=== PATIENT | female | born 1970 | race Caucasian/White ===

== ENCOUNTER 2020-08-06 16:06 | Observation (INO) | payer OTHER ==
[2020-08-06 16:49] LABS: Basophils # (A) 0.1 k/uL (0-0.2); Basophils % (A) 1 %; Eosinophils # (A) 0.7 k/uL (0-0.7); Eosinophils % (A) 5 %; HCT 40.8 % (34.0-46.0); HGB 13.7 gm/dL (11.4-16.0); Lymphocytes # (A) 3.1 k/uL (1.0-4.8); Lymphocytes % (A) 23 %; MCH 30.1 pg (25.0-35.0); MCHC 33.4 g/dL (31.0-37.0); MCV 89.9 fL (80.0-100.0); Mean Platelet Volume 7.2; Monocytes # (A) 0.8 k/uL (0-1.0); Monocytes % (A) 6 %; Neutrophils # (A) 8.9 k/uL (1.3-7.7); Neutrophils % (A) 65 %; Platelet Count 491 k/uL (150-450); RBC 4.54 m/uL (3.80-5.40); RDW 13.6 % (11.5-15.5); WBC 13.8 k/uL (3.8-10.6)
[2020-08-06 16:57] LABS: INR 0.9 (<1.2); Partial Thromboplastin Time 26.2 sec (22.0-30.0); Prothrombin Time 9.5 sec (9.0-12.0)
[2020-08-06 17:00] LABS: ALT 17 U/L (4-34); AST 21 U/L (14-36); African American GFR (CKD) >90 (>60 ml/min/1.73 sqM); Albumin 3.9 g/dL (3.5-5.0); Alkaline Phosphatase 74 U/L (38-126); Anion Gap 6 mmol/L; Blood Urea Nitrogen 9 mg/dL (7-17); Calcium 9.1 mg/dL (8.4-10.2); Carbon Dioxide 25 mmol/L (22-30); Chloride 107 mmol/L (98-107); Glucose 91 mg/dL (74-99); Magnesium 1.9 mg/dL (1.6-2.3); Non-African American GFR(CKD) >90 (>60 ml/min/1.73 sqM); Potassium 4.6 mmol/L (3.5-5.1); Sodium 138 mmol/L (137-145); Total Bilirubin 0.4 mg/dL (0.2-1.3); Total Protein 7.1 g/dL (6.3-8.2)
--- NOTE | 2020-08-06 17:17 | XR ---
EXAMINATION TYPE: XR chest 2V DATE OF EXAM: 08/06/2020 COMPARISON: NONE HISTORY: Chest pain. TECHNIQUE: Frontal and lateral views of the chest are obtained. FINDINGS: There is no focal air space opacity, pleural effusion, or pneumothorax seen. The cardiac silhouette size is within normal limits. The osseous structures are otherwise intact. Single suture anchor overlying the right humeral head seen. IMPRESSION: No acute cardiopulmonary process.
--- NOTE | 2020-08-06 18:10 | ED ---
Chest Pain HPI - General Chief Complaint: Chest Pain Stated Complaint: Chest Pain Time Seen by Provider: 08/06/20 16:10 Source: patient Mode of arrival: ambulatory Limitations: no limitations - History of Present Illness Initial Comments: Pt is a 49-year-old female presents to the emergency room for chest pain. Patient states that she had sudden onset of chest pain which radiated to her left jaw and into her back which started around 3 PM this evening. Reports that it was a pressure sensation that was not reproducible with movement. She denies previous history of cardiac disease. She had no associated nausea or vomiting. Sensation was so severe that it made her feel presyncopal and diaphoretic. No numbness, tingling or weakness in her extremities. She denies recent fevers, chills or cough. No lower externally swelling. No history of DVT or PE. Patient does have some family history of cardiac disease. She presents emergency room and reports that the chest pain is gone at this time. She has never had any type of cardiac evaluation to include echo or stress test. No other alleviating, precipitating or modifying factors - Related Data Home Medications Medication Instructions Recorded Confirmed Albuterol Sulfate [Proair Hfa] 1 puff INHALATION RT-Q4H PRN 08/06/20 08/06/20 Clobetasol Propionate [Temovate 1 applic TOPICAL BID PRN 08/06/20 08/06/20 0.05% Cream] Ergocalciferol [Vitamin D2 50,000 unit PO TU 08/06/20 08/06/20 (DRISDOL)] Omeprazole 20 mg PO AC-BRKFST 08/06/20 08/06/20 Sertraline HCl [Zoloft] 25 mg PO HS 08/06/20 08/06/20 hydrOXYzine HCL [Atarax] 25 mg PO DAILY PRN 08/06/20 08/06/20 Allergies Allergy/AdvReac Type Severity Reaction Status Date / Time fentanyl Allergy Rash/Hives Verified 08/06/20 18:38 shellfish derived [Shrimp] Allergy Rash/Hives Verified 08/06/20 18:38 Review of Systems ROS Statement: Those systems with pertinent positive or pertinent negative responses have been documented in the HPI. ROS Other: All systems not noted in ROS Statement are negative. EKG Findings - EKG Comments: EKG Findings:: EKG demonstrates normal sinus rhythm with a ventricular rate of 74. ND interval 142. QRS 72. QTC of 441. No acute ST segment elevations or depressions Past Medical History Past Medical History: No Reported History History of Any Multi-Drug Resistant Organisms: None Reported Past Surgical History: Section, Orthopedic Surgery, Tonsillectomy, Uterine Ablation Past Psychological History: No Psychological Hx Reported Smoking Status: Never smoker Past Alcohol Use History: Occasional Past Drug Use History: None Reported General Exam Limitations: no limitations General appearance: alert, in no apparent distress Head exam: Present: atraumatic, normocephalic, normal inspection Eye exam: Present: normal appearance, PERRL, EOMI. Absent: scleral icterus, conjunctival injection, periorbital swelling ENT exam: Present: normal exam, mucous membranes moist Neck exam: Present: normal inspection. Absent: tenderness, meningismus, lymphadenopathy Respiratory exam: Present: normal lung sounds bilaterally. Absent: respiratory distress, wheezes, rales, rhonchi, stridor Cardiovascular Exam: Present: regular rate, normal rhythm, normal heart sounds. Absent: systolic murmur, diastolic murmur, rubs, gallop, clicks GI/Abdominal exam: Present: soft, normal bowel sounds. Absent: distended, tenderness, guarding, rebound, rigid Extremities exam: Present: normal inspection, full ROM, normal capillary refill. Absent: tenderness, pedal edema, joint swelling, calf tenderness Back exam: Present: normal inspection Neurological exam: Present: alert, oriented X3, CN II-XII intact Psychiatric exam: Present: normal affect, normal mood Skin exam: Present: warm, dry, intact, normal color. Absent: rash Course Vital Signs 08/06/20 08/06/20 08/06/20 16:10 17:00 18:54 Temperature 98.1 F 98.4 F Pulse Rate 84 86 89 Pulse Rate [ 83 Pulse Oximetery ] Respiratory 16 18 16 Rate Blood Pressure 127/81 131/75 119/70 Blood Pressure 113/73 [Right Arm] O2 Sat by Pulse 96 99 93 L Oximetry Chest Pain MDM - MDM On arrival patient is placed in room 16. A thorough history and physical exam was performed. Patient placed on continuous pulse ox and cardiac monitoring. 12-lead EKG is performed laboratory studies were conducted the patient went for chest x-ray. Laboratory studies are reviewed. Does demonstrate that the patient has a negative troponin level. Chest x-ray demonstrates no acute intrathoracic process. Results are discussed with the patient. I discussed diagnosis, differential and treatment options. Due to the severity of the incident the patient was given an aspirin. Called and spoke with Dr. Hussein who agreed to admit the patient. Patient did agree to this treatment plan. She remained in stable condition, pain-free and was transported to the floor Disposition Clinical Impression: Chest pain Disposition: ADMITTED IP TO THIS HOSP Condition: Stable Is patient prescribed a controlled substance at d/c from ED?: No Decision to Admit Reason: Admit from EC Decision Date: 08/06/20 Decision Time: 18:43
[2020-08-06] MEDS ORDERED: NALOXONE 0.4 MG/ML 1 ML VIAL IV PRN (18:43)
[2020-08-06] MEDS ORDERED: ASPIRIN 325 MG TAB PO STA (18:46)
[2020-08-06] MEDS ORDERED: SERTRALINE 25 MG TAB PO SCH (21:00)
[2020-08-07] MEDS ORDERED: PANTOPRAZOLE 40 MG TABLET PO SCH (07:30)
[2020-08-07 07:58] LABS: Basophils # (A) 0.2 k/uL (0-0.2); Basophils % (A) 1 %; Eosinophils # (A) 0.6 k/uL (0-0.7); Eosinophils % (A) 4 %; HCT 41.3 % (34.0-46.0); HGB 13.3 gm/dL (11.4-16.0); Lymphocytes % (A) 27 %; MCH 29.5 pg (25.0-35.0); MCHC 32.3 g/dL (31.0-37.0); MCV 91.4 fL (80.0-100.0); Mean Platelet Volume 7.2; Monocytes # (A) 0.9 k/uL (0-1.0); Monocytes % (A) 6 %; Neutrophils # (A) 9.1 k/uL (1.3-7.7); Neutrophils % (A) 61 %; Platelet Count 470 k/uL (150-450); RBC 4.52 m/uL (3.80-5.40); RDW 13.7 % (11.5-15.5); WBC 14.9 k/uL (3.8-10.6)
[2020-08-07 08:12] VITALS: RESP 18
[2020-08-07 08:14] LABS: African American GFR (CKD) >90 (>60 ml/min/1.73 sqM); Anion Gap 6 mmol/L; Blood Urea Nitrogen 11 mg/dL (7-17); Carbon Dioxide 26 mmol/L (22-30); Chloride 106 mmol/L (98-107); Glucose 90 mg/dL (74-99); Non-African American GFR(CKD) 85 (>60 ml/min/1.73 sqM); Potassium 4.1 mmol/L (3.5-5.1); Sodium 138 mmol/L (137-145)
--- NOTE | 2020-08-07 10:07 | P.CRDCN ---
History of Present Illness History of present illness: HISTORY OF PRESENTING ILLNESS This is a pleasant 49-year-old occasion female past medical history significant for asthma and depression. 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 We have been asked to see in consultation for chest pain. She states yesterday she had a couple coffee and was sitting down. She was getting up to do something when she had an acute onset of excruciating pain in the midsternal region that radiated through to the mid upper back. It was associated with inability to take a deep breath, diaphoresis and feeling lightheaded. The episode lasted approximately 2 minutes and subsided on its own. This morning she feels a vague ache in the chest and mid upper back. The pain is not reproducible on palpation or with deep breathing. DIAGNOSTICS EKG reveals sinus mechanism with no acute ST or T wave abnormalities noted. Telemetry tracings indicate sinus mechanism with no acute arrhythmias noted. Chest xray negative for an acute cardiopulmonary process. Laboratory reviewed, WBC 14.9, hemoglobin 13.3, platelets 470, sodium 138, potassium 4.1, creatinine 0.83, magnesium 1.9, cardiac enzymes negative 3. She takes no daily cardiac medications. REVIEW OF SYSTEMS At the time of my exam: CONSTITUTIONAL: Denies fever or chills. CARDIOVASCULAR: Complains of chest pain. Denies shortness of breath, orthopnea, PND or palpitations. RESPIRATORY: Denies cough. GASTROINTESTINAL: Denies abdominal pain, diarrhea, constipation, nausea or vomiting. MUSCULOSKELETAL: Denies myalgias. NEUROLOGIC: Denies numbness, tingling, headacbe or weakness. ENDOCRINE: Denies fatigue, weight change, polydipsia or polyurina. GENITOURINARY: Denies burning, hematuria or urgency with micturation. HEMATOLOGIC: Denies history of anemia or bleeding. PHYSICAL EXAMINATION Blood pressure 113/73 heart rate 83 afebrile and maintaining oxygen saturation on nasal cannula. CONSTITUTIONAL: No apparent distress. Obese. HEENT: Head is normocephalic. Pupils are equal, round. Sclerae anicteric. Mucous membranes of the mouth are moist. No JVD. No carotid bruit. CHEST EXAMINATION: Lungs are clear to auscultation. No chest wall tenderness is noted on palpation or with deep breathing. HEART EXAMINATION: Regular rate and rhythm. S1, S2 heard. No murmurs, gallops or rub. ABDOMEN: Soft, nontender. Positive bowel sounds. EXTREMITIES: 2+ peripheral pulses, no lower extremity edema and no calf tenderness. NEUROLOGIC EXAMINATION: Patient is awake, alert and oriented x3. ASSESSMENT Chest pain Obesity, BMI 39 PLAN An acute coronary event has been ruled out. Obtain stress echocardiogram to assess for stress-induced cardiac ischemia. If stress test is normal she may be discharged from a cardiac perspective. Thank you kindly for this consultation. Nurse Practitioner note has been reviewed, I agree with a documented findings and plan of care. Patient was seen and examined. Past Medical History Past Medical History: No Reported History History of Any Multi-Drug Resistant Organisms: None Reported Past Surgical History: Section, Orthopedic Surgery, Tonsillectomy, Uterine Ablation Past Anesthesia/Blood Transfusion Reactions: No Reported Reaction Past Psychological History: No Psychological Hx Reported Smoking Status: Never smoker Past Alcohol Use History: Occasional Past Drug Use History: None Reported Medications and Allergies Home Medications Medication Instructions Recorded Confirmed Type Albuterol Sulfate [Proair Hfa] 1 puff INHALATION RT-Q4H PRN 08/06/20 08/06/20 History Clobetasol Propionate [Temovate 1 applic TOPICAL BID PRN 08/06/20 08/06/20 History 0.05% Cream] Ergocalciferol [Vitamin D2] 50,000 unit PO TU 08/06/20 08/06/20 History Omeprazole 20 mg PO AC-BRKFST 08/06/20 08/06/20 History Sertraline HCl [Zoloft] 25 mg PO HS 08/06/20 08/06/20 History hydrOXYzine HCL [Atarax] 25 mg PO DAILY PRN 08/06/20 08/06/20 History Allergies Allergy/AdvReac Type Severity Reaction Status Date / Time fentanyl Allergy Rash/Hives Verified 08/06/20 18:38 shellfish derived [Shrimp] Allergy Rash/Hives Verified 08/06/20 18:38 Physical Exam Vitals: Vital Signs Temp Pulse Pulse Resp BP BP Pulse Ox 08/07/20 08:09 98.1 F 68 18 127/88 97 08/07/20 03:00 98.4 F 83 22 113/73 96 08/06/20 21:00 97.5 F L 82 22 130/75 96 08/06/20 18:54 98.4 F 89 83 16 119/70 113/73 93 L 08/06/20 17:00 86 18 131/75 99 08/06/20 16:10 98.1 F 84 16 127/81 96 Intake and Output 08/06/20 08/07/20 08/07/20 22:59 06:59 14:59 Other: Weight 108.862 kg Results 08/07/20 07:37 08/07/20 07:37 Cardiac Enzymes 08/06/20 08/06/20 08/06/20 Range/Units 16:42 16:42 18:31 AST 21 (14-36) U/L Troponin I <0.012 <0.012 (0.000-0.034) ng/mL 08/06/20 Range/Units 21:18 AST (14-36) U/L Troponin I <0.012 (0.000-0.034) ng/mL Coagulation 08/06/20 Range/Units 16:42 PT 9.5 (9.0-12.0) sec APTT 26.2 (22.0-30.0) sec CBC 08/06/20 08/07/20 Range/Units 16:42 07:37 WBC 13.8 H 14.9 H (3.8-10.6) k/uL RBC 4.54 4.52 (3.80-5.40) m/uL Hgb 13.7 13.3 (11.4-16.0) gm/dL Hct 40.8 41.3 (34.0-46.0) % Plt Count 491 H 470 H (150-450) k/uL Comprehensive Metabolic Panel 08/06/20 08/07/20 Range/Units 16:42 07:37 Sodium 138 138 (137-145) mmol/L Potassium 4.6 4.1 (3.5-5.1) mmol/L Chloride 107 106 (98-107) mmol/L Carbon Dioxide 25 26 (22-30) mmol/L BUN 9 11 (7-17) mg/dL Creatinine 0.78 0.83 (0.52-1.04) mg/dL Glucose 91 90 (74-99) mg/dL Calcium 9.1 9.0 (8.4-10.2) mg/dL AST 21 (14-36) U/L ALT 17 (4-34) U/L Alkaline Phosphatase 74 (38-126) U/L Total Protein 7.1 (6.3-8.2) g/dL Albumin 3.9 (3.5-5.0) g/dL Current Medications Generic Name Dose Route Start Last Admin Trade Name Freq PRN Reason Stop Dose Admin Ergocalciferol 50,000 unit 08/08/20 09:00 Ergocalciferol 50,000 Unit Cap PO TU ELI Naloxone HCl 0.2 mg 08/06/20 18:43 Naloxone 0.4 Mg/Ml 1 Ml Vial IV Q2M PRN Opioid Reversal Pantoprazole Sodium 40 mg 08/07/20 07:30 08/07/20 07:25 Pantoprazole 40 Mg Tablet PO 40 mg AC-BRKFST ELI Administration Sertraline HCl 25 mg 08/06/20 21:00 08/06/20 22:20 Sertraline 25 Mg Tab PO 25 mg HS ELI Administration Intake and Output 08/06/20 08/07/20 08/07/20 22:59 06:59 14:59 Other: Weight 108.862 kg 08/07/20 07:37 08/07/20 07:37
--- NOTE | 2020-08-07 13:02 | ECHOS ---
STRESS ECHOCARDIOGRAM LUMASON: ____Vial INDICATIONS: Chest pain. MEDICATIONS: BASELINE HEART RATE: 75 BASELINE BLOOD PRESSURE: 130/83 MAXIMUM HEART RATE: 167 MAXIMUM BLOOD PRESSURE: 162/66 85% MPHR: 147 100% MPHR: 173 METS: 7.0 MAXIMUM STAGE REACHED: II TOTAL EXERCISE TIME: 5 minutes CLINICAL INFORMATION: Baseline rhythm is a sinus mechanism, rate of 75, normal axis and intervals, poor R progression. Baseline blood pressure 130/83 mmHg. Patient exercised on Papa protocol for 5 minutes reaching peak rate 167 beats per 67 beats per minute which is equal to 99% maximum predicted heart rate. Peak blood pressure 162/66 mmHg. Test was terminated secondary to fatigue. There was no chest pain. Electrocardiograph monitoring revealed occasional PVCs. There was no evidence of diagnostic ischemic ST deviation. Baseline echocardiogram revealed normal wall motion. At peak exercise, there was normal wall motion augmentation with no hypokinesis or dyskinesis. CONCLUSION: 1. Decreased exercise tolerance with occasional PVCs and normal electrocardiographic response to exercise. 2. Normal stress echocardiogram with no evidence of stress-induced ischemia. MMODL / IJN: [id number] /
--- NOTE | 2020-08-07 13:39 | P.HPIM ---
History of Present Illness H&P Date: 08/07/20 Chief Complaint: Chest pain This a 49-year-old female admitted with past medical history of depression, complains of midsternal chest squeezing radiating into mid upper back a ccompanied by lightheadedness, diaphoresis and difficulty breathing, that occurred midday yesterday after rinsing out her coffee cup. Symptoms lasted approximately 2 minutes then subsided. Patient reports similar presentation this morning prior to stress test with no reproducible pain upon palpation or deep breathing. Patient is a nonsmoker, occasional alcohol consumption. Did have a glass a wine the night before, for their anniversary. Patient denies history of asthma/COPD. Reports she had covid-19 in October. Around the end of June 2020 she reports she developed some shortness of breath ,cough, was placed on Proair inhaler, with minimal relief followed by Medrol Dosepak and later on amoxicillin. Reports her shortness of breath continues, sometimes waking her up at night. She sleeps on one pillow. No cough. Denies exertional shortness of breath. Denies fever, congestion or cough. Reports she still is having to use her inhaler 4 times a day. Patient does have morbid obesity, with a BMI 39.9. Chest x-ray reported no acute cardiopulmonary process, EKG reported sinus rhythm, troponins negative 3 , stress test pending. Afebrile, WBC 13.8, 14.9, platelets 491, 470, otherwise hematology, unremarkable, chemistry unremarkable. PT 9.5, INR 0.9. Review of Systems ROS Statement: Those systems with pertinent positive or pertinent negative responses have been documented in the HPI. ROS Other: All systems not noted in ROS Statement are negative. Past Medical History Past Medical History: No Reported History History of Any Multi-Drug Resistant Organisms: None Reported Past Surgical History: Section, Orthopedic Surgery, Tonsillectomy, Uterine Ablation Past Anesthesia/Blood Transfusion Reactions: No Reported Reaction Past Psychological History: No Psychological Hx Reported Smoking Status: Never smoker Past Alcohol Use History: Occasional Past Drug Use History: None Reported Medications and Allergies Home Medications Medication Instructions Recorded Confirmed Type Albuterol Sulfate [Proair Hfa] 1 puff INHALATION RT-Q4H PRN 08/06/20 08/06/20 History Clobetasol Propionate [Temovate 1 applic TOPICAL BID PRN 08/06/20 08/06/20 History 0.05% Cream] Ergocalciferol [Vitamin D2 50,000 unit PO TU 08/06/20 08/06/20 History (DRISDOL)] Omeprazole 20 mg PO AC-BRKFST 08/06/20 08/06/20 History Sertraline HCl [Zoloft] 25 mg PO HS 08/06/20 08/06/20 History hydrOXYzine HCL [Atarax] 25 mg PO DAILY PRN 08/06/20 08/06/20 History Allergies Allergy/AdvReac Type Severity Reaction Status Date / Time fentanyl Allergy Rash/Hives Verified 08/06/20 18:38 shellfish derived [Shrimp] Allergy Rash/Hives Verified 08/06/20 18:38 Physical Exam Vitals: Vital Signs Temp Pulse Pulse Resp BP BP Pulse Ox 08/07/20 09:00 68 18 08/07/20 08:09 98.1 F 68 18 127/88 97 08/07/20 03:00 98.4 F 83 22 113/73 96 08/06/20 21:00 97.5 F L 82 22 130/75 96 08/06/20 18:54 98.4 F 89 83 16 119/70 113/73 93 L 08/06/20 17:00 86 18 131/75 99 08/06/20 16:10 98.1 F 84 16 127/81 96 Intake and Output 08/06/20 08/07/20 08/07/20 22:59 06:59 14:59 Intake Total 0 Balance 0 Intake: Oral 0 Other: # Voids 1 Weight 108.862 kg 108.86 kg PHYSICAL EXAM: VITAL SIGNS: [As above] GENERAL: Sitting up in bed, no acute distress HEENT: Conjunctivae normal. eyes normal. Oral mucosa moist NECK: No JVD. No thyroid enlargement. No LNs CARDIOVASCULAR: S1, S2 regular. No murmur RESPIRATION: Breath sounds diminished in the bases. No rhonchi or crackles. No bronchial breathing. ABDOMEN: Soft, nontender . No guarding. no masses palpable. No ascites, No hepatosplenomegaly.Bowel sounds heard. LEGS: No edema. no swelling PSYCHIATRY: Alert and oriented X3, mood and affect normal. NERVOUS SYSTEM: Cranial N 2-12 grossly normal. Moves all 4 limbs. No focal deficits. Strength and sensation grossly intact.. Skin: Warm and dry, no rash Lymphatic system. No LN neck axilla. Results CBC & Chem 7: 08/07/20 07:37 08/07/20 07:37 Labs: Abnormal Lab Results - Last 24 Hours (Table) 08/06/20 08/07/20 Range/Units 16:42 07:37 WBC 13.8 H 14.9 H (3.8-10.6) k/uL Plt Count 491 H 470 H (150-450) k/uL Neutrophils # 8.9 H 9.1 H (1.3-7.7) k/uL Thrombosis Risk Factor Assmnt - Choose All That Apply Any of the Below Risk Factors Present?: No Assessment and Plan Assessment: Midsternal chest pressure radiating to the back, negative troponins Shortness of breath, workup in progress, Morbid obesity, BMI 39.9 Plan: Continue on current medication regime ,monitoring and symptomatic treatment. Stress test verbally reported as negative with patient cleared as per cardiology. D-dimer ordered, if elevated will continue with CTA. The impression and plan of care has been dictated as directed. : I performed a history and examination of this patient, discussed the same with the dictator. I agree with the dictator's note ,documented as a scribe. Any additional findings or plans will be noted.
--- NOTE | 2020-08-07 15:40 | CT ---
EXAMINATION TYPE: CT chest angio for PE DATE OF EXAM: 08/07/2020 COMPARISON: Chest x-ray from yesterday. HISTORY: Shortness of breath and chest discomfort. CT DLP: 763.7 mGycm Automated exposure control for dose reduction was used. CONTRAST: CTA Chest for pulmonary embolism performed with with IV Contrast, patient injected with 100 mL of Iso eva 300. Mid images are created on CT scan aren't reviewed. FINDINGS: LUNGS: Focal mild linear scarring and/or atelectasis medial aspect right middle lobe. Dependent atele ctasis bilateral lower lobes. No suspicious focal consolidation. No pleural effusion or pneumothorax seen bilaterally. No suspicious pulmonary masses. MEDIASTINUM: There is satisfactory enhancement of the pulmonary artery and its branches, there is no CT evidence for pulmonary embolism. Satisfactory enhancement of the aorta without aneurysm or dissect ion. Bovine type aortic arch which is normal variant. There are no greater than 1 cm hilar or mediast inal lymph nodes. Slightly prominent but subcentimeter bilateral hilar lymph nodes. No cardiomegaly or pericardial effusion is seen. Somewhat small size thyroid with 6 mm right thyroid calcification o r calcified nodule axial image 11. OTHER: Small Duodenal diverticulum along the second portion is present. Slightly prominent but subce ntimeter bilateral axillary lymph nodes. IMPRESSION: No CT evidence for acute pulmonary embolism. No suspicious acute pulmonary process.
[2020-08-07 17:18] VITALS: BP 120/73; PULSE 76; TEMP 98
[2020-08-08] MEDS ORDERED: ERGOCALCIFEROL 50,000 UNIT CAP PO SCH (09:00)
== END 2020-08-07 17:34 ==
LOC: EC 16:06 → 1SOBS 18:43
PROVIDERS: ADMIT Family Medicine; ATTEND Family Medicine
DX: R07.89 Other chest pain (principal); R55 Syncope and collapse; R61 Generalized hyperhidrosis; R06.02 Shortness of breath; R42 Dizziness and giddiness; R06.00 Dyspnea, unspecified; I49.3 Ventricular premature depolarization; F32.9 Major depressive disorder, single episode, unspecified; E66.01 Morbid (severe) obesity due to excess calories; J45.909 Unspecified asthma, uncomplicated; Z79.899 Other long term (current) drug therapy; Z88.5 Allergy status to narcotic agent; Z91.013 Allergy to seafood; Z98.890 Other specified postprocedural states; Z90.89 Acquired absence of other organs; Z86.16 Personal history of COVID-19; Z68.39 Body mass index [BMI] 39.0-39.9, adult; Z82.49 Family history of ischemic heart disease and other diseases of the circulatory system
CPT/HCPCS: 99285; 36415; 93005; 93351; 85379; 80053; 80048; 83735; 84484; 85025 ×2; 85610; 85730; 71046; 71275; G0378 ×2; Q9967

== ENCOUNTER → 2020-08-17 | Outpatient (CLI) | payer OTHER ==
--- NOTE | 2020-08-17 09:46 | US ---
EXAMINATION TYPE: US gallbladder DATE OF EXAM: 08/17/2020 COMPARISON: CT Chest CLINICAL HISTORY: 49-year-old female Abdominal Pain RUQ, R10.11, R10.13. Pt states chest/ RUQ pain TECHNIQUE: Multiple sonographic images of the right upper quadrant are obtained. FINDINGS: EXAM MEASUREMENTS: Liver Length: 17.7 cm Gallbladder Wall: 0.2 cm CBD: 0.6 cm Right Kidney: 10.3 x 4.1 x 4.8 cm Pancreas: Tail obscured by overlying bowel gas. Visualized portions show no gross abnormality. Liver: Borderline enlarged. Slight heterogeneity may be on technical basis. No focal lesion seen. Gallbladder: Two polyps anterior (9 x 4 mm) and posterior wall (5 mm). No shadowing calculi, hydropi c change, wall thickening Evidence for sonographic Miller's sign: No CBD: Borderline in caliber. Right Kidney: No hydronephrosis. Lower pole gassed out and suboptimally assessed. IMPRESSION: 1. The bile duct is borderline in caliber at 6 mm. Correlate with alkaline phosphatase and bilirubin levels to exclude early biliary obstruction. 2. Gallbladder wall polyps measuring 9 x 4 mm anteriorly and 5 mm posteriorly. No shadowing gallstone s or ancillary findings of acute cholecystitis. Six-month follow-up gallbladder ultrasound recommende d to reassess. 3. Borderline sized liver at 17.7 cm.
== END | disposition home or self-care (01) ==
LOC: RADUSWWP 07:27
PROVIDERS: ATTEND Family Medicine
DX: K82.4 Cholesterolosis of gallbladder (principal)
CPT/HCPCS: 76705

== ENCOUNTER → 2020-09-18 | Outpatient (CLI) | payer OTHER ==
--- NOTE | 2020-09-18 10:00 | MM ---
Reason for exam: screening (asymptomatic). Baseline mammogram. Physical Findings: Nurse did not find any significant physical abnormalities on exam. MG Screening Mammo w CAD Bilateral CC and MLO view(s) were taken. There are scattered fibroglandular densities. Small medial right CC asymmetric density anterior depth. Intramammary node left upper outer quadrant. These results were verbally communicated with the patient and result sheet given to the patient on 09/18/20. ASSESSMENT: Incomplete: need additional imaging evaluation, BI-RAD 0 RECOMMENDATION: Special view mammogram of the right breast.
--- NOTE | 2020-09-18 10:01 | MM ---
Reason for exam: additional evaluation requested from abnormal screening. Physical Findings: Breast exam preformed at baseline screening. MG Work Up Mamm w CAD RT Spot compression CC and LM view(s) were taken of the right breast. There are scattered fibroglandular densities. The medial asymmetry disperses on additional views. These results were verbally communicated with the patient and result sheet given to the patient on 09/18/20. ASSESSMENT: Benign, BI-RAD 2 RECOMMENDATION: Return to routine screening mammogram schedule for both breasts.
== END ==
LOC: RADMAMWWP 07:31
PROVIDERS: ATTEND Family Medicine
DX: Z12.31 Encounter for screening mammogram for malignant neoplasm of breast (principal); N64.89 Other specified disorders of breast
CPT/HCPCS: 77065; 77067

== ENCOUNTER → 2021-03-28 | Outpatient (CLI) | payer OTHER ==
--- NOTE | 2021-03-28 21:54 | CT ---
EXAMINATION TYPE: CT abdomen pelvis wo con DATE OF EXAM: 03/28/2021 HISTORY: RUQ pain CT DLP: 1212.1 mGycm. Automated Exposure Control for Dose Reduction was Utilized. TECHNIQUE: CT scan of the abdomen and pelvis is performed with oral but without IV contrast. COMPARISON: Gallbladder ultrasound August 17, 2020 FINDINGS: Within the limitations of a non-contrast study, the following observations are made. LUNG BASES: Mild by basilar linear scarring and/or atelectasis. LIVER/GB: Cholecystectomy clips are now present. Liver size upper limits of normal. No new biliary di latation. PANCREAS: No significant abnormality is seen. SPLEEN: Small sized spleen left upper quadrant. ADRENALS: No significant abnormality is seen. KIDNEYS: No renal calculi or hydronephrosis seen bilaterally. BOWEL: The oral contrast has not reached the level of terminal ileum making evaluation of distal marta l slightly suboptimal. No suspicious small or large bowel dilatation. Appendix within normal limits p osteriorly from base of cecum. Some diverticula in the left and sigmoid colon. No CT evidence for acu te diverticulitis GENITAL ORGANS: Anteverted uterus. Surgical clip pelvic cul-de-sac axial image 72. Ovaries symmetric and within normal limits in size. LYMPH NODES: No greater than 1cm abdominal or pelvic lymph nodes are appreciated. OSSEOUS STRUCTURES: Mild to moderate disc space narrowing lumbosacral junction.. OTHER: Mild diffuse subcutaneous edema. IMPRESSION: No acute findings seen to account for patient's symptoms of recurrent right upper quadran t pain.
== END | disposition home or self-care (01) ==
LOC: RADCTMAIN 15:55
PROVIDERS: ATTEND Family Medicine
DX: R10.11 Right upper quadrant pain (principal)
CPT/HCPCS: 74176

== ENCOUNTER → 2024-09-25 | Outpatient (CLI) | payer MEDICAID ==
[2024-09-26 06:29] LABS: Basophils # (A) 0.14 X 10*3/uL (0.00-0.10); Eosinophils # (A) 0.55 X 10*3/uL (0.04-0.35); Eosinophils % (A) 4.1 %; HCT 41.6 % (37.2-46.3); HGB 13.1 g/dL (12.0-15.0); Lymphocytes # (A) 3.24 X 10*3/uL (0.90-5.00); Lymphocytes % (A) 24.3 %; MCH 29.8 pg (27.0-32.0); MCHC 31.5 g/dL (32.0-37.0); MCV 94.5 FL (80.0-97.0); Mean Platelet Volume 10.4 FL (9.5-12.2); Monocytes # (A) 1.05 X 10*3/uL (0.20-1.00); Monocytes % (A) 7.9 %; NRBC Per 100 WBC 0 X 10*3/uL (0.00-0.01); Neutrophils # (A) 8.33 X 10*3/uL (1.80-7.70); Neutrophils % (A) 62.3 %; Platelet Count 481 X 10*3/uL (140-440); RDW 14.6 % (11.5-14.5); WBC 13.36 X 10*3/uL (4.50-10.00)
[2024-09-26 08:52] LABS: ALT 12 U/L (8-44); AST 17 U/L (13-35); Albumin 3.9 g/dL (3.8-4.9); Albumin/Globulin Ratio 1.62 Ratio (1.60-3.17); Alkaline Phosphatase 69 U/L (41-126); BUN/Creat Ratio 13.88 Ratio (12.00-20.00); Blood Urea Nitrogen 11.1 mg/dL (9.0-27.0); Calcium 8.9 mg/dL (8.7-10.3); Chloride 106 mmol/L (96-109); Chol/HDL Ratio 4.17 Ratio; Globulin 2.4 g/dL (1.6-3.3); Glucose 94 mg/dL (70-110); LDL Cholesterol,Calculated 96.8 mg/dL (0.0-131.0); Potassium 4.7 mmol/L (3.5-5.5); Sodium 138 mmol/L (135-145); Total Bilirubin 0.2 mg/dL (0.3-1.2); Total Protein 6.3 g/dL (6.2-8.2)
[2024-09-26 12:11] LABS: Luteinizing Hormone 7.1 mIU/mL
[2024-09-27 15:03] LABS: Gliadin AB IgA, Deaminated Negative (Negative); Gliadin AB IgA, Unit 2.3 U/mL; Gliadin AB IgG, Deaminated Negative (Negative); Gliadin AB IgG, Unit <0.4 U/mL
== END | disposition home or self-care (01) ==
LOC: LABWHC1 10:06
PROVIDERS: ATTEND Family Medicine
DX: R23.2 Flushing (principal); R63.5 Abnormal weight gain; F41.8 Other specified anxiety disorders; R21 Rash and other nonspecific skin eruption
CPT/HCPCS: 36415; 80053; 80061; 82306; 82533; 82670; 83001; 83002; 83516; 84439; 84443; 85025

== ENCOUNTER → 2024-10-07 | Outpatient (CLI) | payer MEDICAID ==
[2024-10-08 03:05] LABS: % Iron Saturation 17.27 (12.00-45.00); Ferritin 46.7 ng/mL (10.0-291.0)
== END | disposition home or self-care (01) ==
LOC: LABWHC1 15:33
PROVIDERS: ATTEND Family Medicine
DX: R79.9 Abnormal finding of blood chemistry, unspecified (principal); R53.83 Other fatigue
CPT/HCPCS: 36415; 82728; 83540; 83550